=== PATIENT | female | born 1990 | race Caucasian/White ===

== ENCOUNTER 2018-01-23 07:53 | Emergency (ER) | payer OTHER ==
[2018-01-23] MEDS: ONDANSETRON (ODT) 4 MG TAB ODT (08:19)
[2018-01-23] MEDS: HYDROCODONE/APAP (5/325) TAB PO ×2 (08:19→09:57)
== END 2018-01-23 09:53 | disposition home or self-care (01) ==
LOC: FTE 07:53
DX: M25.512 Pain in left shoulder (principal)
CPT/HCPCS: 71045; 71100; 73000; 73030; 99284-25

== ENCOUNTER 2018-01-29 20:52 | Emergency (ER) | payer OTHER | END 2018-01-29 23:51 | disposition home or self-care (01) | LOC: FTE 20:52 | DX: H92.03 Otalgia, bilateral (principal) | CPT/HCPCS: 99283 ==